=== PATIENT | female | born 1990 | race Caucasian/White ===

== ENCOUNTER 2019-03-31 18:57 | Emergency (ER) | payer SELFPAY ==
[~2019-03-31] VITALS: Ht 170.2 cm; Wt 63.5 kg
[2019-03-31 19:04] VITALS: BP 143/86
--- NOTE | 2019-03-31 19:20 | NUR ---
CALLED FOR PT IN [place]. NO RESPONSE.
--- NOTE | 2019-03-31 20:00 | NUR ---
CALLED FOR PT IN [place]. NO RESPONSE
--- NOTE | 2019-03-31 20:23 | NUR ---
CALLED FOR PT IN [place]. NO RESPOSNE
== END 2019-03-31 23:02 | disposition left against medical advice (07) ==
LOC: ER 19:01
DX: F41.9 Anxiety disorder, unspecified (principal); F31.9 Bipolar disorder, unspecified; Z53.21 Procedure and treatment not carried out due to patient leaving prior to being seen by health care provider